=== PATIENT | female | born 1980 | race Caucasian/White ===

== ENCOUNTER 2021-11-29 19:49 | Emergency (ER) | payer BC ==
[2021-11-29] MEDS ORDERED: Lidocaine 1% 10 ML MDV INJECT ONE (21:22)
== END 2021-11-29 22:27 | disposition home or self-care (01) ==
LOC: JD.ED 19:49
DX: S61.213A Laceration without foreign body of left middle finger without damage to nail, initial encounter (principal); W26.0XXA Contact with knife, initial encounter
CPT/HCPCS: 12001; 99282